=== PATIENT | female | born 1995 | race Caucasian/White ===

== ENCOUNTER → 2019-01-10 | Outpatient (CLI) | payer MEDICAID ==
[2014-08-07 12:20] VITALS: BP 138/70
[~2019-01-10] MED LIST: OXYC1TAB15 PO
--- NOTE | 2019-01-10 12:09 | RAD ---
BRAIN W/O CONTRAST Date: 01/10/2019 11:15 AM Indication: Headaches for 2 weeks Comparison: None. Technique: Multiplanar multisequence MRI of the brain was performed without intravenous contrast using the standard protocol. Findings: No acute infarct. No acute or chronic hemorrhage. The ventricles are normal in size and configuration without hydrocephalus. The scalp and calvarium are normal. The pituitary and sella are normal. No Chiari malformation. The visualized upper cervical spine is normal. The visualized orbits and globes are normal. Right maxillary sinus mucus retention cysts. Left maxillary sinus and ethmoid air cell mucosal thickening. The mastoid air cells are clear. Normal flow voids within the vertebral, basilar, and internal carotid arteries indicating patency. IMPRESSION: No acute infarct, hemorrhage, mass, or hydrocephalus. Paranasal sinus disease. Electronically signed by: Pito Alves MD (01/10/2019 12:06 PM) [id number]
== END | disposition home or self-care (01) ==
LOC: MRI 10:23
DX: R51 Headache (principal); M27.40 Unspecified cyst of jaw; J32.8 Other chronic sinusitis
CPT/HCPCS: 70551